=== PATIENT | male | born 1995 | race African-American/Black ===

== ENCOUNTER 2017-01-24 01:51 | Emergency (ER) | payer MEDICAID ==
[~2017-01-24] VITALS: Ht 167.6 cm; Wt 68.0 kg
[2017-01-24 02:30] VITALS: BP 118/79
[2017-01-24] MEDS ORDERED: DIPHENHYDRAMINE 25MG CAPSULE PO ONE (03:45)
== END 2017-01-24 04:07 | disposition home or self-care (01) ==
LOC: ER 03:45
DX: R60.0 Localized edema (principal); F12.10 Cannabis abuse, uncomplicated
CPT/HCPCS: 99282

== ENCOUNTER 2017-01-24 11:09 | Emergency (ER) | payer MEDICAID ==
[~2017-01-24] VITALS: Ht 167.6 cm; Wt 69.0 kg
[2017-01-24 11:33] VITALS: BP 111/47
== END 2017-01-24 13:20 | disposition home or self-care (01) ==
LOC: ER 11:55
DX: T63.301A Toxic effect of unspecified spider venom, accidental (unintentional), initial encounter (principal); R22.0 Localized swelling, mass and lump, head; F12.10 Cannabis abuse, uncomplicated; Y92.018 Other place in single-family (private) house as the place of occurrence of the external cause
CPT/HCPCS: 99281